=== PATIENT | female | born 1965 | race Caucasian/White ===

== ENCOUNTER 2021-06-03 09:37 | Day surgery (SDC) | payer OTHER ==
[2021-05-30 11:10] LABS: Absolute Lymphocytes (CBC) 1.7 K/uL (0.7-4.9); Hematocrit 37.5 % (36.0-45.0); Lymphocytes % 23.2 % (15.3-44.8); RBC Red Blood Cell Count 4.06 M/uL (3.86-4.86)
[2021-05-30 11:42] LABS: BUN Blood Urea Nitrogen 12 mg/dL (7-18); Bicarbonate 28 mmol/L (21-32); Glucose Level 96 mg/dL (74-106); Potassium 3.9 mmol/L (3.5-5.1); Sodium Level 139 mmol/L (136-145)
[2021-06-03] MEDS ORDERED: propofoL 200 MG/20 ML VIAL IV ONE (09:53)
[2021-06-03] MEDS ORDERED: MIDAZOLAM HCL 2 MG/2 ML INJ ONE (09:54)
[2021-06-03] MEDS ORDERED: LIDOCAINE 1% MPF 5 ML VIAL ONE (09:54)
[2021-06-03] MEDS ORDERED: ONDANSETRON 4 MG/2 ML VIAL ONE ×2 (09:54→13:39)
[2021-06-03] MEDS ORDERED: FENTANYL CITR 100 MCG/2 ML ONE (09:54)
[2021-06-03] MEDS ORDERED: Ringers Lactate 1,000 ML IV ONE ×2 (10:00→11:21)
[2021-06-03] MEDS ORDERED: ROCURONIUM 50 MG/5 ML VIAL IV ONE (10:04)
[2021-06-03] MEDS ORDERED: BUPIVACAINE 0.25% PF 10 ML VIAL ONE (10:11)
[2021-06-03] MEDS ORDERED: CEFOXITIN 2 GM in NA CHLORIDE 0.9% 100 ML IVPB SCH (10:15)
[2021-06-03] MEDS ORDERED: SUCCINYLCHOLINE 20 MG/ML (10 ML) IV ONE (10:33)
[2021-06-03] MEDS ORDERED: BUPIVACAINE 0.25% PF 10 ML VIAL IJ ONE ×2 (12:23)
[2021-06-03] MEDS ORDERED: GLYCOPYRROLATE 0.2 MG/ML SYR ONE (12:52)
[2021-06-03] MEDS ORDERED: NEOSTIGMINE 1 MG/ML -5 ML ONE (12:52)
--- NOTE | 2021-06-03 12:57 | P.OP ---
Preoperative diagnosis: Chronic Cholecystitis Postoperative diagnosis: Chronic Cholecystitis Primary procedure: Laparoscopic Cholecystectomy with ICG cholangiography Anesthesia: GETA + Local Estimated blood loss: <5cc Specimen: gallbladder Findings: distended gallbladder Complications: None Transferred to: Recovery Room Condition: Good
[2021-06-03] MEDS ORDERED: KETOROLAC 30 MG/ML INJ ONE (13:10)
[2021-06-03] MEDS: MORPHINE 4 MG/ML SYR ONE ×2 (13:25→13:30)
[2021-06-03] MEDS: FENTANYL CITR 100 MCG/2 ML ONE ×3 (13:32→13:42)
[2021-06-03] MEDS: HYDROMORPHONE HCL 1 MG/ML INJ ONE ×4 (13:47→14:06)
[2021-06-03 14:33] VITALS: BP 122/63; TEMP 97.1; O2SAT 98
[2021-06-03] MEDS ORDERED: HYDROCODONE/APAP 10/325 TAB ONE (14:55)
--- NOTE | 2021-06-03 23:20 | OP ---
Date of Procedure: 06/03/2021 Surgeon: Pedro Luis Villalobos MD, Preoperative Diagnosis: Chronic cholecystitis. Postoperative Diagnosis: Chronic cholecystitis. Procedure Performed: Laparoscopic cholecystectomy with ICG cholangiography. Anesthesia: General tracheal plus local with 0.25% Marcaine. Estimated Fluid Loss: 5 cc. Specimen: Gallbladder. Findings: Distended gallbladder. Complications: None. Disposition: The patient was transferred to recovery room in good condition. Procedure In Detail: After informed consent was obtained, the patient was brought to the operating r oom, prepped and draped in the usual sterile fashion. After adequate anesthesia was achieved, an are a in the supraumbilical skin was anesthetized with 0.25% Marcaine and sharply incised. A 5 mm trocar was placed under direct visualization without any complication. Insufflation was obtained to 15 mmH g at this time. Two additional trocars were placed, 1 in the epigastrium and 1 in the right upper qu adrant. Both these areas were similarly anesthetized and sharply incised. 5 mm trocars were placed under direct visualization without any complication. The umbilical trocar site was then upsized to a 12 mm under direct visualization without complication. The patient was positioned in head up and ri ght-side up position. Ratcheted grasper was used to grasp the patient's gallbladder and placed towar ds the patient's right shoulder. Omental adhesions were taken down using electrocautery. After skel etonizing the gallbladder, indocyanine green cholangiography was performed verifying the confluence o f the cystic duct and common duct junction and verifying that the anatomic structures were in fact id entified properly and after they were skeletonized, they were identified as the cystic duct and cysti c artery and a critical view of safety was obtained at this point. After encircling these structures and sweeping them clear and being skeletonized as described above, I placed double titanium clips on the proximal side and the distal side of both cystic duct and cystic artery and ligated these 2 stru ctures using Endo Jose E. The gallbladder was removed from the hepatic fossa without evidence of com plication using electrocautery without any issue. No additional hemostatic maneuver was required. T he gallbladder was then placed into an EndoCatch bag and removed through the umbilical trocar and sen t off for pathologic examination. The abdomen was completely re-insufflated at this point, irrigated copiously and the clips were found to be good anatomic position without any leakage. No additional maneuvers were required. The patient was positioned back in neutral position. Remaining effluent wa s suctioned out. The umbilical trocar site was then closed using a Brett-Dinh suture passer wit h 0 Vicryl in an interrupted fashion with good approximation of tissues. The 5 mm trocars and the re maining trocar sites were then irrigated and cleansed after completely de-sufflating the abdomen unde r direct visualization. All skin sites were then closed with 4-0 Monocryl in a running fashion and D ermabond placed over the top. The patient tolerated the procedure well without any complication and transferred to PACU in good condition. All counts were correct at the end of the case. YUNG/SERGIO Voice ID: [id number] Report ID: [id number]
== END 2021-06-03 15:16 | disposition home or self-care (01) ==
LOC: OR 09:37
PROVIDERS: ATTEND Surgery
PROC: BF13YZZ Fluoroscopy of Gallbladder and Bile Ducts using Other Contrast (ICD-10-PCS; 2021-06-03)
PROC: 0FT44ZZ Resection of Gallbladder, Percutaneous Endoscopic Approach (ICD-10-PCS; principal; 2021-06-03 11:45)
DX: K80.10 Calculus of gallbladder with chronic cholecystitis without obstruction (principal); Z20.822 Contact with and (suspected) exposure to COVID-19
CPT/HCPCS: 85025; 80048; 36415; 88304; 47563; U0002; J2704; J2250; J3010 ×2; J1170 ×2; J2710; J7120 ×2; J0694; J2405 ×2; J0330

== ENCOUNTER 2023-06-29 07:38 | Day surgery (SDC) | payer OTHER ==
[2023-06-06 11:15] LABS: Absolute Eosinophils 0.2 K/uL (0-0.5); Absolute Monocytes 0.5 K/uL (0.1-1.3); Absolute Neutrophil 5.4 K/uL (1.8-8.0); Basophils % 0.4 % (0-1.3); Eosinophils % 2.3 % (0-4.4); Hematocrit 39.1 % (36.0-45.0); Hemoglobin 13.2 g/dL (12.0-15.0); Lymphocytes % 24.9 % (15.3-44.8); MCH 31.7 pg (27.0-35.0); MCHC 33.7 g/dL (32.0-36.0); MCV 93.9 fL (80-100); MPV 7.8 fL (7.6-11.3); Monocytes % 6.2 % (3.3-12.3); Neutrophils % 66.2 % (41.7-73.7); Platelets 354 thou/uL (152-406); RBC Red Blood Cell Count 4.17 M/uL (3.86-4.86); Red Cell Distribution Width 14.1 % (12.1-15.2)
[2023-06-06 11:29] LABS: Anion Gap 6.7 mEq/L (5.0-15.0); Potassium 4.7 mEq/L (3.5-5.1)
--- NOTE | 2023-06-07 14:02 | EKG ---
Test Date: 2023-06-06 Test Time: 10:36:20 Criminalist: LUIS MEASUREMENT RESULTS: Intervals: Rate: 76 MT: 158 QRSD: 82 QT: 402 QTc: 452 [place]: P: 35 MT: 158 QRS: 19 T: 72 INTERPRETIVE STATEMENTS: Normal sinus rhythm Cannot rule out Anterior infarct, age undetermined Abnormal ECG No previous ECG available for comparison Electronically Signed On 06-07-23 13:59:52 CDT by Sha Sanchez
[2023-06-29] MEDS: Ringers Lactate 1,000 ML IV ONE (08:00)
[2023-06-29] MEDS ORDERED: LIDOCAINE 1% MPF 2 ML AMPULE ONE (09:30)
[2023-06-29] MEDS ORDERED: propofoL 200 MG/20 ML VIAL IV ONE (09:30)
[2023-06-29 11:08] VITALS: BP 116/61; TEMP 98.2; O2SAT 99
== END 2023-06-29 10:50 | disposition home or self-care (01) ==
LOC: OR 07:38
PROVIDERS: ATTEND Surgery
PROC: 0DBK8ZX Excision of Ascending Colon, Via Natural or Artificial Opening Endoscopic, Diagnostic (ICD-10-PCS; principal; 2023-06-29 09:00)
DX: Z12.11 Encounter for screening for malignant neoplasm of colon (principal); K57.30 Diverticulosis of large intestine without perforation or abscess without bleeding; K64.8 Other hemorrhoids; D12.2 Benign neoplasm of ascending colon
CPT/HCPCS: 93005; 85025; 80048; 36415; 88304; 45380; J2704; J7120; 88305

== ENCOUNTER 2024-07-11 08:05 | Day surgery (SDC) | payer OTHER ==
[2024-07-09 09:18] LABS: Absolute Eosinophils 0.2 K/uL (0-0.5); Absolute Lymphocytes (CBC) 1.7 K/uL (0.7-4.9); Absolute Monocytes 0.4 K/uL (0.1-1.3); Absolute Neutrophil 2.7 K/uL (1.8-8.0); Basophils % 0.8 % (0-1.3); Eosinophils % 4.1 % (0-4.4); Hematocrit 37.2 % (36.0-45.0); Hemoglobin 12.7 g/dL (12.0-15.0); Lymphocytes % 33.7 % (15.3-44.8); MCH 31.9 pg (27.0-35.0); MCV 93.6 fL (80-100); MPV 7.6 fL (7.6-11.3); Monocytes % 8.6 % (3.3-12.3); Neutrophils % 52.8 % (41.7-73.7); Platelets 307 thou/uL (152-406); RBC Red Blood Cell Count 3.98 M/uL (3.86-4.86); Red Cell Distribution Width 13.7 % (12.1-15.2)
[2024-07-09 09:28] LABS: Anion Gap 8.6 mEq/L (5.0-15.0); Potassium 4.6 mEq/L (3.5-5.1)
--- NOTE | 2024-07-09 12:33 | EKG ---
Test Date: 2024-07-09 Test Time: 08:58:11 Electric Lineman: LYNN MEASUREMENT RESULTS: Intervals: Rate: 57 IA: 156 QRSD: 86 QT: 444 QTc: 432 [place]: P: 53 IA: 156 QRS: 34 T: 70 INTERPRETIVE STATEMENTS: Sinus bradycardia Otherwise normal ECG Compared to ECG 06/06/2023 10:36:20 Sinus rhythm no longer present Myocardial infarct finding no longer present Electronically Signed On 07-09-24 12:32:58 CDT by Ollie Begum
[2024-07-11] MEDS: Ringers Lactate 1,000 ML IV ONE (09:15)
[2024-07-11] MEDS ORDERED: propofoL 200 MG/20 ML VIAL IV ONE (10:26)
[2024-07-11] MEDS ORDERED: LIDOCAINE 1% MPF 5 ML VIAL ONE ×2 (10:26→10:27)
[2024-07-11 11:59] VITALS: O2SAT 100
[2024-07-11 12:06] VITALS: BP 127/71; TEMP 97.3
== END 2024-07-11 11:55 | disposition home or self-care (01) ==
LOC: OR 08:05
PROVIDERS: ATTEND Surgery
PROC: 0DBN8ZX Excision of Sigmoid Colon, Via Natural or Artificial Opening Endoscopic, Diagnostic (ICD-10-PCS; principal; 2024-07-11 10:30)
DX: Z12.11 Encounter for screening for malignant neoplasm of colon (principal); K51.90 Ulcerative colitis, unspecified, without complications; K57.30 Diverticulosis of large intestine without perforation or abscess without bleeding; K64.8 Other hemorrhoids
CPT/HCPCS: 93005; 85025; 80048; 36415; 88305; 45380; J2704; J2003 ×2; J7120